=== PATIENT | male | born 1980 | race African-American/Black ===

== ENCOUNTER 2019-06-09 20:27 | Emergency (ER) | payer SELFPAY ==
[~2019-06-09] VITALS: Ht 182.8 cm; Wt 72.6 kg
[2019-06-09] MEDS ORDERED: CYCLOBENZAPRINE5 M3 PO (21:37)
[2019-06-09] MEDS ORDERED: Motrin,Rufen800 MG PO (21:37)
== END 2019-06-09 21:53 | disposition home or self-care (01) ==
LOC: ED 20:27
DX: S39.012A Strain of muscle, fascia and tendon of lower back, initial encounter (principal); Z88.0 Allergy status to penicillin; X58.XXXA Exposure to other specified factors, initial encounter; Y93.01 Activity, walking, marching and hiking; Y92.89 Other specified places as the place of occurrence of the external cause; Y99.8 Other external cause status